=== PATIENT | male | born 1980 | race Caucasian/White ===

== ENCOUNTER → 2021-03-02 12:10 | Outpatient (CLI) | payer OTHER, SELFPAY ==
[2021-03-02] MEDS: COVID-19 VACC #1, MRNA(MOD) 100 MCG/0.5 ML VIAL IM (12:17)
== END ==
PROVIDERS: Visit Provider Internal Medicine
DX: Z23 Encounter for immunization (principal)
CPT/HCPCS: 0011A; 91301

== ENCOUNTER → 2021-03-31 12:30 | Outpatient (CLI) | payer OTHER, SELFPAY ==
[2021-03-31] MEDS: COVID-19 VACC #2, MRNA(MOD) 100 MCG/0.5 ML VIAL IM (12:34)
== END ==
PROVIDERS: Visit Provider Internal Medicine
DX: Z23 Encounter for immunization (principal)
CPT/HCPCS: 0012A; 91301